=== PATIENT | male | born 1995 | race Caucasian/White ===

== ENCOUNTER 2017-10-08 19:00 | Emergency (ER) | payer OTHER ==
--- NOTE | 2017-10-08 19:05 | EDM.PDOC ---
ED HPI GENERAL MEDICAL PROBLEM - General Chief Complaint: ENT Problem Stated Complaint: Right eye pain Time Seen by Provider: 10/08/17 19:00 Source of Information: Reports: Patient, Old Records ([facility] chart/EMR) History Limitations: Reports: No Limitations - History of Present Illness INITIAL COMMENTS - FREE TEXT/NARRATIVE: The patient was brought to the emergency room via transport vehicle from [facility] for evaluation of a Workmen's Compensation injury, which occurred about 18:30 hours. 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 He did briefly lift his welder shielded metal arc shield with a foreign body sensation of his right eye shortly thereafter. 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 He did wash his right eye out prior to arrival to this facility but no other treatment to this point. The patient did have a tetanus shot one year ago by his history. He complains of 2/10 foreign body sensation of the right eye. He does have a long history of significant left-sided myopia, however has been noncompliant with his glasses, followed by exams, etc. No recent history of abdominal pain, heartburn, nausea, diarrhea, melena, gross hematochezia, or any food intolerance , including fatty foods, etc.. The patient also denies any recent fever, cough, wheezing, dyspnea, etc.. Onset: Today, Sudden Onset Date: 10/08/17 Onset Time: 18:30 Duration: Constant Location: Reports: Head (Right eye). Denies: Face, Neck, Radiates to Quality: Reports: Same as Previous Episode, Other (Foreign body sensation) Severity: Mild Improves with: Reports: None Worsens with: Reports: None Context: Reports: Other (As above) Associated Symptoms: Reports: No Other Symptoms. 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 [No Known Home Meds] 12/22/14 [History] Past Medical History HEENT History: Reports: Impaired Vision, Other (See Below). Denies: Allergic Rhinitis, Hard of Hearing Other HEENT History: Moderate to severe left-sided myopia. Gastrointestinal History: Reports: Other (See Below) Other Gastrointestinal History: Splenomegaly secondary to mononucleosis on . Genitourinary History: Reports: Renal Calculus, Other (See Below) Other Genitourinary History: Right-sided urolithiasis on 11/09/11 with spontaneous passage. Musculoskeletal History: Reports: Fracture, Other (See Below) Other Musculoskeletal History: Fracture of the distal phalanx of digit #4 of the left hand on 12/22/14 - Infectious Disease History Infectious Disease History: Reports: Chicken Pox, Mononucleosis (05/14/10.). Denies: C-Difficile, Measles, Meningitis, MRSA, Mumps, Pertussis (Whooping Cough ), Rheumatic Fever, RSV, Rubella, Scarlet Fever, Shingles, VRE - Past Imaging History Past Imaging History: Reports: CAT Scan (CT of the abdomen on 11/09/11.), Ultrasound (Abdominal ultrasound on 05/28/10. Ultrasound of the spleen and soft tissue of the neck region on 05/14/10.) Social & Family History - Tobacco Use Smoking Status *Q: Current Every Day Smoker Tobacco Use Within Last Twelve Months: Other (See Below) (E cigarettes as below) Years of Tobacco use: 6 Packs/Tins Daily: 1 Used Tobacco, but Quit: No Month/Year Tobacco Last Used: SHEENT smoked cigarettes between ages 20 and 16 and has been using E cigare Tobacco Use Comment: Smoked cigarettes between ages 16 and 20 with E cigarette use since that time Smoking Cessation Information Provided To Patient: Yes Second Hand Smoke Exposure: No Second Hand Smoke Education Provided: No - Living Situation & Occupation Living situation: Reports: Single (No children), with Significant Other Occupation: Employed ([employer]) ED ROS GENERAL - Review of Systems Review Of Systems: ROS reveals no pertinent complaints other than HPI. ED EXAM GENERAL W FULL EYE - Physical Exam Exam: See Below Exam Limited By: No Limitations General Appearance: Alert, WD/WN, No Apparent Distress Eye Exam: Left Eye: Vision Changes (Chronic as below), Bilateral Eye: EOMI, Normal Fundi, Normal Inspection, PERRL Visual Acuity (R) 20/: 15 Visual Acuity (L) 20/: 70 With Correction: No Eyelids: Bilateral: Normal Appearance Conjunctiva & Sclera: Bilateral: Normal Appearance Cornea Exam: Right: Examined with Flourescein, Bilateral: Normal Appearance Extraocular Movements: Bilateral: Intact Pupils: Normal Accommodation Pupillary Size: Bilateral: 6 mm Pupillary Reaction: Bilateral: Brisk Anterior Chamber: Bilateral: Normal Appearance Posterior Chamber: Bilateral: Normal Funduscopic Ears: Normal External Exam, Normal Canal, Hearing Grossly Normal, Normal TMs Nose: Normal Inspection, Normal Mucosa, No Blood Throat/Mouth: Normal Inspection, Normal Lips, Normal Teeth, Normal Gums, Normal Oropharynx, Normal Voice, No Airway Compromise. No: Dysphagia, Perioral Cyanosis Head: Atraumatic, Normocephalic. No: Facial Swelling, Facial Tenderness, Sinus Tenderness Neck: Normal Inspection, Supple, Non-Tender, Full Range of Motion. No: Lymphadenopathy (L), Lymphadenopathy (R), Thyromegaly Respiratory/Chest: No Respiratory Distress, Lungs Clear, Normal Breath Sounds, No Accessory Muscle Use, Chest Non-Tender. No: Pleural Rub, Retractions Cardiovascular: Normal Peripheral Pulses, Regular Rate, Rhythm, No Edema, No Gallop, No JVD, No Murmur, No Rub. No: Gallop/S3, Gallop/S4 GI/Abdominal: Normal Bowel Sounds, Soft, Non-Tender, No Organomegaly, No Distention, No Abnormal Bruit, No Mass. No: Guarding (Male) Exam: Deferred Rectal (Males) Exam: Deferred Back Exam: Normal Inspection, Full Range of Motion. No: CVA Tenderness (L), CVA Tenderness (R), Muscle Spasm Extremities: Normal Inspection, Normal Range of Motion, Non-Tender, Normal Capillary Refill, No Pedal Edema Neurological: Alert, Oriented, CN II-XII Intact, Normal Cognition, Normal Gait, No Motor/Sensory Deficits Psychiatric: Normal Affect, Normal Mood Skin Exam: Warm, Dry, Intact, Normal Color, No Rash. No: Diaphoretic, Wound/ Incision Lymphatic: No Adenopathy ED EYE w/ Add Procedure - Eye Procedure Alcaine Drops Administered: Yes (Tetracaine) Eye FB Removal: Other (No foreign body noted) Eye Irrigated w/ Saline (ccs): 30 Course - Vital Signs Last Recorded V/S: Last Vital Signs Temp 36.8 C 10/08/17 19:07 Pulse 81 10/08/17 19:07 Resp 18 10/08/17 19:07 BP 124/78 10/08/17 19:07 Pulse Ox 100 10/08/17 19:07 Vital Signs - 24 hr 10/08/17 19:07 Temperature [ 36.8 C Temporal] Pulse, 81 Peripheral [ Right Pulse Oximetry] Respiratory 18 Rate Blood Pressure 124/78 [Right Upper Arm] O2 Sat by Pulse 100 Oximetry - Orders/Labs/Meds Orders: Active Orders 24 hr Category Date Time Status Obtain Past Medical Record [OM.PC] Routine Oth 10/08/17 19:05 Active Labs: None Meds: Medications Discontinued Medications Generic Name Dose Route Start Last Admin Trade Name Homarq PRN Reason Stop Dose Admin Balanced Salt Solution 30 ml 10/08/17 19:07 10/08/17 19:19 Eye Stream Eye Rinse EYERT 10/08/17 19:08 Not Given ONETIME ONE Tetracaine HCl 1 ml 10/08/17 19:07 10/08/17 19:19 Tetracaine 0.5% Steri-Unit [place] EYERT 10/08/17 19:08 Not Given ASDIRECTED ONE - Radiology Interpretation Free Text/Narrative:: None Departure - Departure Time of Disposition: 19:50 Disposition: Home, Self-Care 01 Condition: Good Clinical Impression: Tobacco abuse counseling Foreign body of right eye Qualifiers: Encounter type: initial encounter Qualified Code(s): T15.91XA - Foreign body on external eye, part unspecified, right eye, initial encounter Myopia Qualifiers: Laterality: left Qualified Code(s): H52.12 - Myopia, left eye - Discharge Information *PRESCRIPTION DRUG MONITORING PROGRAM REVIEWED*: Not Applicable *COPY OF PRESCRIPTION DRUG MONITORING REPORT IN PATIENT DIANA: Not Applicable Instructions: What You Need to Know About Electronic Cigarettes, Eye Foreign Body, [id number] Forms: ED Department Discharge Additional Instructions: 1. Follow up with your regular provider in 4-5 days as needed, if symptoms persist. Bring these discharge instructions with you to that visit.. 2. Stop all tobacco/ E- cigarette use ANN as directed/per provided information and consider contacting Quit LIne, etc.. 3. Strict compliance with use of your glasses with follow-up with your eye doctor ANN secondary to significant vision problems in the left eye 4. Work excuse- See Form 5. Tylenol 650 mg by mouth every 4 hours and/or OTC ibuprofen 2-3 tabs by mouth every 6 hours with food as directed./needed. 6. Artificial tears 2 drops in the right eye every 2 hours as needed/discussed until symptoms resolve 7. Immediately after this visit verify that your cellular telephone's voicemail has been activated and is empty. Also verify that your home telephone 's answering machine is operating properly and has space to receive messages. Note that it is sometimes necessary for us to be able to contact you at a later date to discuss your medical care. - Problem List & Annotations (1) Foreign body of right eye SNOMED Code(s): 19433423 Code(s): T15.91XA - FOREIGN BODY ON EXTERNAL EYE, PART UNSP, RIGHT EYE, INIT Status: Acute Priority: High Onset Date: 10/08/17 Annotation/Comment:: History of possible foreign body of the right eye, although the patient is uncertain at this time. He did not see any foreign body after he rinsed his eye out at work as above. His tetanus booster is up-to-date as above. Completely normal Fluroscein test, eye exam, etc. as above with exception of significant chronic baseline left-sided myopia with the patient noncompliant with his follow -up eye exams and use of glasses. He should follow-up with his eye doctor ANN secondary to his poor vision of the left eye. 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 Workmen's Compensation and [place] work excuse forms were completed. He does feel he can perform his normal work duties, including this evening. Symptomatic relief as per discharge instructions. Qualifiers: Encounter type: initial encounter Qualified Code(s): T15.91XA - Foreign body on external eye, part unspecified, right eye, initial encounter (2) Myopia SNOMED Code(s): 54007947 Code(s): H52.10 - MYOPIA, UNSPECIFIED EYE Status: Chronic Priority: High Annotation/Comment:: As above Qualifiers: Laterality: left Qualified Code(s): H52.12 - Myopia, left eye (3) Tobacco abuse counseling SNOMED Code(s): 265084753, 812465049, 488214754 Code(s): Z71.6 - TOBACCO ABUSE COUNSELING Status: Chronic Priority: Medium Annotation/Comment:: Patient was congratulated about stopping cigarette use, however was strongly encouraged to discontinue the E-cigarette use with information provided. - Problem List Review Problem List Initiated/Reviewed/Updated: Yes - My Orders Last 24 Hours: My Active Orders 10/08/17 19:05 Obtain Past Medical Record [OM.PC] Routine - Assessment/Plan Last 24 Hours: My Active Orders 10/08/17 19:05 Obtain Past Medical Record [OM.PC] Routine Assessment:: As above Plan: As above. Extensive precautions were given to the patient, who is in agreement with the treatment plan. See Patient Instructions for further treatment and plan.
[2017-10-08] MEDS ORDERED: Tetracaine HCl/PF 0.5% 4 ML Bottle EYERT ONE (19:07)
[2017-10-08] MEDS ORDERED: Balanced Salt Solution Ophth Irrig 30 ML Bottle EYERT ONE (19:07)
[2017-10-08 19:08] VITALS: BP 124/78
== END 2017-10-08 19:30 | disposition home or self-care (01) ==
LOC: LL.ED 19:00
DX: T15.91XA Foreign body on external eye, part unspecified, right eye, initial encounter (principal); H52.12 Myopia, left eye; Z71.6 Tobacco abuse counseling
CPT/HCPCS: 99284; A9270-GY

== ENCOUNTER 2018-09-10 18:24 | Emergency (ER) | payer BC ==
[2018-09-10] MEDS ORDERED: Sodium Chloride 0.9% 10 ML Syringe FLUSH PRN (18:38)
[2018-09-10] MEDS ORDERED: Lactated Ringers 1,000 ML IV ONE (18:38)
[2018-09-10] MEDS ORDERED: Pantoprazole 40 MG Vial IVPUSH ONE (18:38)
[2018-09-10] MEDS ORDERED: Famotidine 20 MG/2 ML SDV IVPUSH ONE (18:38)
--- NOTE | 2018-09-10 18:38 | EDM.PDOC ---
ED HPI GENERAL MEDICAL PROBLEM - General Chief Complaint: Abdominal Pain Stated Complaint: Abdominal pain LLQ Time Seen by Provider: 09/10/18 18:30 Source of Information: Reports: Patient, Old Records ([facility] chart/EMR) History Limitations: Reports: No Limitations - History of Present Illness INITIAL COMMENTS - FREE TEXT/NARRATIVE: The patient drove himself to the emergency room via private automobile for evaluation of nonspecific 2/10 left lower quadrant abdominal pain and aching sensation with symptoms starting at about 10 AM yesterday morning when he woke up. He was able to go to work yesterday, however had to leave work this afternoon secondary to worsening of his symptoms. His symptoms are intermittent in nature with no similar symptoms in the past. He has not taken any medications for his symptoms to this point. He denies any known exposure to infection, food poisoning, etc.. He denies any current nausea with one episode of emesis at about 17:30 hours this afternoon. No recent history of other abdominal pain, heartburn, diarrhea, melena, gross hematochezia, hematemesis, or any food intolerance, including fatty foods, etc. with a normal bowel movement earlier this morning. He denies any gross hematuria, colic, or other UTI symptoms. The patient denies any chest pain/pressure, heart flutter, dizziness, orthostasis, orthopnea, diaphoresis, paresthesias, recent decreased exercise tolerance, or any other anginal-type symptoms. The patient also denies any recent fever, cough, wheezing, dyspnea, etc.. Onset: Today, Gradual Onset Date: 09/09/18 Onset Time: 10:00 Duration: Getting Worse, Intermittent Location: Reports: Abdomen. Denies: Head, Face, Neck, Chest, Back, Pelvis, Radiates to Quality: Reports: Ache Severity: Mild Improves with: Reports: None Worsens with: Reports: None Context: Reports: Other (As above). Denies: Sick Contact, Trauma Associated Symptoms: Reports: Nausea/Vomiting. 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 Denies: Allergic Rhinitis, Cataract, Glaucoma, Hard of Hearing, Macular Degeneration, Retinal Detachment Other HEENT History: Moderate to severe left-sided myopia with patient wearing glasses. Cardiovascular History: Reports: None, Other (See Below). Denies: Afib, Aneurysm, Arrhythmia, Blood Clots/VTE/DVT, CAD, Cardiomyopathy, Heart Failure, Heart Murmur, High Cholesterol, Hypertension, VA, PVD, Syncope Other Cardiovascular History: He does not know his cholesterol status. Respiratory History: Reports: None. Denies: Asthma, Bronchitis, Recurrent, COPD , Intubation, Difficult, Intubation, Previous, PE, Pneumonia, Recurrent, Pneumothorax, Sleep Apnea, TB Gastrointestinal History: Reports: Gastritis, GI Bleed, Helicobacter Pylori, Other (See Below). Denies: Celiac Disease, Cholelithiasis, Chronic Constipation , Chronic Diarrhea, Colon Polyp, Fecal Incontinence, Hepatitis, Inflammatory Bowel Disease, Irritable Bowel Syndrome, Jaundice, Pancreatitis, PUD Other Gastrointestinal History: Probable gastritis with Hemoccult-positive stools with previously treated H. pylori infection in about 2015 with no evidence of significant GI bleed. Splenomegaly secondary to mononucleosis on 05/14. Genitourinary History: Reports: Renal Calculus, Other (See Below). Denies: Acute Renal Failure, BPH, Chronic Renal Insuffiency, Prostate Disorder, Retention, Urinary, STD, Urinary Incontinence, UTI, Recurrent Other Genitourinary History: Right-sided urolithiasis on 11/09/11 with spontaneous passage. Musculoskeletal History: Reports: Fracture, Other (See Below). Denies: Arthritis, Back Pain, Chronic, Gout, Neck Pain, Chronic, Osteoarthritis, RA, SLE Other Musculoskeletal History: Fracture of the distal phalanx of digit #4 of the left hand on 12/22/14 Neurological History: Reports: None. Denies: Cerebral Aneurysms, Concussion, CVA, Headaches, Chronic, Head Trauma, Migraines, MS, Parkinson's, Seizure, TIA, Vertigo Psychiatric History: Reports: Anxiety, Depression. Denies: Abuse, Victim of, ADD, ADHD, Addiction, Psych Hospitalization(s), Psychosis, PTSD, Suicide Attempt , Suicidal Ideation Endocrine/Metabolic History: Reports: None. Denies: Diabetes, Type I, Diabetes , Type II, Diabetes Mellitus, Type 3c, Hypothyroidism, IDDM, Obesity/BMI 30+ Hematologic History: Reports: None. Denies: Anemia, Blood Transfusion(s), Iron Deficiency Immunologic History: Reports: None. Denies: AIDS, HIV, SLE Oncologic (Cancer) History: Reports: None. Denies: Basal Cell Carcinoma, Hodgkin's Lymphoma, Leukemia, Lymphoma, Malignant Melanoma, Non-Hodgkin's Lymphoma, Squamous Cell Carcinoma Dermatologic History: Reports: None. Denies: Eczema, Melanoma - Infectious Disease History Infectious Disease History: Reports: Chicken Pox, Helicobacter Pylori ( Previously treated as above), Mononucleosis (05/14/10.). Denies: C-Difficile, Measles, Meningitis, MRSA, Mumps, Pertussis (Whooping Cough), Rheumatic Fever, RSV, Rubella, Scarlet Fever, Shingles, TB, VRE - Past Surgical History Head Surgeries/Procedures: Reports: None HEENT Surgical History: Reports: Myringotomy w Tube(s), Oral Surgery, Other ( See Below). Denies: Adenoidectomy, Eye Surgery, Laser Surgery, LASIK, Naso- Sinus Surgery, Tonsillectomy Other HEENT Surgeries/Procedures: [place] teeth extraction 2017. Bilateral PE tubes in patient biller. Cardiovascular Surgical History: Reports: None. Denies: Varicose, Vascular Surgery Respiratory Surgical History: Reports: None. Denies: Thoracentesis GI Surgical History: Reports: None. Denies: Appendectomy, Cholecystectomy, Colonoscopy, EGD, Hernia, Abdominal, Hernia, Inguinal, Hernia Repair/Other, Polypectomy Male Surgical History: Reports: Circumcision, Other (See Below). Denies: Vasectomy Other Male Surgeries/Procedures: Circumcision as an infant. Endocrine Surgical History: Reports: None. Denies: Thyroid Biopsy Neurological Surgical History: Reports: None. Denies: C-Spine, Discectomy, Laminectomy, Lumbar Spine, Sacral Spine, Spinal Fusion, Thoracic Spine, Vertebroplasty Musculoskeletal Surgical History: Reports: None. Denies: Arthroscopic Procedure , Carpal Tunnel, Ganglion Cyst, Joint Replacement, ORIF, Shoulder Replacement, Shoulder Surgery Oncologic Surgical History: Reports: None Dermatological Surgical History: Reports: None - Past Imaging History Past Imaging History: Reports: CAT Scan (CT of the abdomen on 11/09/11.), Ultrasound (Abdominal ultrasound on 05/28/10. Ultrasound of the spleen and soft tissue of the neck region on 05/14/10.) Social & Family History - Tobacco Use Smoking Status *Q: Current Every Day Smoker Tobacco Use Within Last Twelve Months: Cigarettes Years of Tobacco use: 7 Packs/Tins Daily: 1 Packs/Tins Daily Comment: Smoked about 1 pack of cigarettes per day between ages 16 and 20 with use of E cigarettes since that time. Used Tobacco, but Quit: No Smoking Cessation Information Provided To Patient: Yes Second Hand Smoke Exposure: Yes Source of Second Hand Smoke Exposure: Father's significant other also abuses tobacco Second Hand Smoke Education Provided: Yes - Caffeine Use Caffeine Use: Reports: None. Denies: Coffee, Energy Drinks, Soda, Tea - Alcohol Use Alcohol Use History: Yes Days Per Week of Alcohol Use: 4 Number of Drinks Per Day: 6 Number of Drinks Per Day Comment: Usually beer. No previous DWIs, problems with alcohol abuse, etc. Total Drinks Per Week: 24 Alcohol Use in Last Twelve Months: Yes - Recreational Drug Use Recreational Drug Use: Yes Drug Use in Last 12 Months: Yes Recreational Drug Type: Reports: Cocaine (Experimented with cocaine in August 2018.), Marijuana/Hashish (Daily use since age 22.). Denies: Amphetamines ( Speed), Heroin, Inhalants (Glues, Solvents, Aerosols), LSD (Acid), Methamphetamine, Morphine, Oxycodone Recreational Drug Route: Reports: Inhaled - Living Situation & Occupation Living situation: Reports: Single (No children), with Family (Father and his father significant other.) Occupation: Employed ([employer]) ED ROS GENERAL - Review of Systems Review Of Systems: ROS reveals no pertinent complaints other than HPI. ED EXAM, GI/ABD - Physical Exam Exam: See Below Exam Limited By: No Limitations General Appearance: Alert, WD/WN, No Apparent Distress, Anxious (Mild) Eyes: Bilateral: Normal Appearance (No nystagmus), EOMI (PERRLA) Ears: Normal External Exam, Normal Canal, Hearing Grossly Normal, Normal TMs Nose: Normal Inspection, Normal Mucosa, No Blood Throat/Mouth: Normal Inspection, Normal Lips, Normal Teeth, Normal Gums, Normal Oropharynx, Normal Voice, No Airway Compromise. No: Dysphagia, Perioral Cyanosis Head: Atraumatic, Normocephalic. No: Facial Swelling, Facial Tenderness, Sinus Tenderness Neck: Normal Inspection, Supple, Non-Tender, Full Range of Motion. No: Lymphadenopathy (L), Lymphadenopathy (R), Thyromegaly Respiratory/Chest: No Respiratory Distress, Lungs Clear, Normal Breath Sounds, No Accessory Muscle Use, Chest Non-Tender. No: Pleural Rub, Retractions Cardiovascular: Normal Peripheral Pulses, Regular Rate, Rhythm, No Edema, No Gallop, No JVD, No Murmur, No Rub. No: Gallop/S3, Gallop/S4 GI/Abdominal Exam: Normal Bowel Sounds, Soft, Non-Tender, No Organomegaly, No Distention, No Abnormal Bruit, No Mass. No: Guarding (Male) Exam: Deferred Rectal (Males) Exam: Deferred Back Exam: Normal Inspection, Full Range of Motion. No: CVA Tenderness (L), CVA Tenderness (R), Muscle Spasm Extremities: Normal Inspection, Normal Range of Motion, Non-Tender, No Pedal Edema, Normal Capillary Refill. No: Carlos Alberto's Sign Neurological: Alert, Oriented, CN II-XII Intact, Normal Cognition, Normal Gait, Normal Reflexes (Negative Babinski's), No Motor/Sensory Deficits Psychiatric: Anxious (Mild). No: Depressed Mood Skin Exam: Warm, Dry, Intact, Normal Color, No Rash. No: Diaphoretic, Wound/ Incision Lymphatic: No Adenopathy Course - Vital Signs Last Recorded V/S: Last Vital Signs Temp 36.8 C 09/10/18 18:30 Pulse 97 09/10/18 18:30 Resp 20 09/10/18 18:30 BP 128/76 09/10/18 18:30 Pulse Ox 98 09/10/18 18:30 Vital Signs - 24 hr 09/10/18 18:30 Temperature [ 36.8 C Temporal] Pulse, 97 Peripheral [ Right Pulse Oximetry] Respiratory 20 Rate Blood Pressure 128/76 [Left Upper Arm ] O2 Sat by Pulse 98 Oximetry - Orders/Labs/Meds Orders: Active Orders 24 hr Category Date Time Status Peripheral IV Care [RC] . DIRECTED Care 09/10/18 18:38 Active Abdomen Series w Chest 1V [CR] Stat Exams 09/10/18 18:38 Taken CULTURE URINE [RM] Stat Lab 09/10/18 19:18 Received Obtain Past Medical Record [OM.PC] Urgent Oth 09/10/18 18:38 Active Peripheral IV Insertion Adult [OM.PC] Stat Oth 09/10/18 18:38 Ordered Resuscitation Status Stat Resus Stat 09/10/18 18:38 Ordered Labs: Laboratory Tests 09/10/18 09/10/18 09/10/18 Range/Units 18:48 18:48 18:48 WBC 8.6 (4.0-10.2) K/uL RBC 5.13 (4.33-5.41) M/uL Hgb 16.2 D (13.1-16.8) g/dL Hct 46.6 (39.0-49.0) % MCV 90.8 (84.0-98.0) fL MCH 31.6 (28.2-33.3) pg MCHC 34.8 (31.7-36.0) g/dL RDW 13.9 (11.2-14.1) % Plt Count 252 (150-350) K/uL Neut % (Auto) 77.1 (45.0-80.0) % Lymph % (Auto) 16.2 (10.0-50.0) % [place] % (Auto) 5.9 (2.0-14.0) % Eos % (Auto) 0.5 (0.0-5.0) % Baso % (Auto) 0.3 (0.0-2.0) % Neut # (Auto) 6.64 (1.40-7.00) K/uL Lymph # (Auto) 1.40 (0.50-3.50) K/uL [place] # (Auto) 0.51 (0.00-1.00) K/uL Eos # (Auto) 0.04 (0.00-0.50) K/uL Baso # (Auto) 0.03 (0.00-0.20) K/uL PT 11.5 (9.5-12.0) SEC INR 1.1 APTT 30.0 (21.0-31.3) SEC Sodium (136-145) mmol/L Potassium (3.5-5.1) mmol/L Chloride (98-107) mmol/L Carbon Dioxide (21.0-32.0) mmol/L BUN (7-18) mg/dL Creatinine (0.51-1.17) mg/dL Est Cr Clr Drug Dosing Estimated GFR (MDRD) mL/min Glucose (74-106) mg/dL Lactic Acid (0.4-2.0) mmol/L Uric Acid (2.6-7.2) mg/dL Calcium (8.5-10.1) mg/dL Magnesium (1.8-2.4) mg/dL Total Bilirubin (0.2-1.0) mg/dL AST (15-37) U/L ALT (12-78) U/L Alkaline Phosphatase (46-116) IU/L Total Protein (6.4-8.2) g/dL Albumin (3.4-5.0) g/dL Amylase 73 (25-115) U/L Lipase (73-393) U/L Specimen Type Urine Color Urine Appearance Urine pH (5.0-9.0) Ur Specific [place] (1.005-1.030) Urine Protein (NEGATIVE) mg/dL Urine Glucose (UA) (NEGATIVE) mg/dL Urine Ketones (NEGATIVE) mg/dL Urine Occult Blood (NEGATIVE) Urine Nitrite (NEGATIVE) Urine Bilirubin (NEGATIVE) Urine Urobilinogen (0.2-1.0) E.U./dL Ur Leukocyte Esterase (NEGATIVE) Urine RBC /HPF Urine WBC /HPF Ur Epithelial Cells /LPF Urine Bacteria (NONE TO FEW) /HPF Urine Mucus (NEGATIVE) /LPF 09/10/18 09/10/18 09/10/18 Range/Units 18:48 18:48 19:18 WBC (4.0-10.2) K/uL RBC (4.33-5.41) M/uL Hgb (13.1-16.8) g/dL Hct (39.0-49.0) % MCV (84.0-98.0) fL MCH (28.2-33.3) pg MCHC (31.7-36.0) g/dL RDW (11.2-14.1) % Plt Count (150-350) K/uL Neut % (Auto) (45.0-80.0) % Lymph % (Auto) (10.0-50.0) % [place] % (Auto) (2.0-14.0) % Eos % (Auto) (0.0-5.0) % Baso % (Auto) (0.0-2.0) % Neut # (Auto) (1.40-7.00) K/uL Lymph # (Auto) (0.50-3.50) K/uL [place] # (Auto) (0.00-1.00) K/uL Eos # (Auto) (0.00-0.50) K/uL Baso # (Auto) (0.00-0.20) K/uL PT (9.5-12.0) SEC INR APTT (21.0-31.3) SEC Sodium 137 (136-145) mmol/L Potassium 4.1 (3.5-5.1) mmol/L Chloride 101 (98-107) mmol/L Carbon Dioxide 26.5 (21.0-32.0) mmol/L BUN 10 (7-18) mg/dL Creatinine 0.83 (0.51-1.17) mg/dL Est Cr Clr Drug Dosing TNP Estimated GFR (MDRD) > 60 mL/min Glucose 94 (74-106) mg/dL Lactic Acid 0.8 (0.4-2.0) mmol/L Uric Acid 6.3 (2.6-7.2) mg/dL Calcium 9.4 (8.5-10.1) mg/dL Magnesium 1.8 (1.8-2.4) mg/dL Total Bilirubin 0.7 (0.2-1.0) mg/dL AST 18 (15-37) U/L ALT 26 (12-78) U/L Alkaline Phosphatase 85 (46-116) IU/L Total Protein 8.4 H (6.4-8.2) g/dL Albumin 4.3 (3.4-5.0) g/dL Amylase (25-115) U/L Lipase 76 (73-393) U/L Specimen Type Urinvoid Urine Color Dark yellow Urine Appearance Clear Urine pH 5.5 (5.0-9.0) Ur Specific [place] 1.020 (1.005-1.030) Urine Protein Negative (NEGATIVE) mg/dL Urine Glucose (UA) Negative (NEGATIVE) mg/dL Urine Ketones Trace H (NEGATIVE) mg/dL Urine Occult Blood Negative (NEGATIVE) Urine Nitrite Negative (NEGATIVE) Urine Bilirubin Negative (NEGATIVE) Urine Urobilinogen 0.2 (0.2-1.0) E.U./dL Ur Leukocyte Esterase Negative (NEGATIVE) Urine RBC 0-5 /HPF Urine WBC 0-5 /HPF Ur Epithelial Cells Rare /LPF Urine Bacteria Rare (NONE TO FEW) /HPF Urine Mucus Moderate H (NEGATIVE) /LPF Urine specimen set up for C&S Meds: Medications Discontinued Medications Generic Name Dose Route Start Last Admin Trade Name Freq PRN Reason Stop Dose Admin Famotidine 40 mg 09/10/18 18:38 09/10/18 19:07 Pepcid IVPUSH 09/10/18 18:39 40 mg ONETIME ONE Administration Lactated Ringer's 1,000 mls @ 999 mls/hr 09/10/18 18:38 09/10/18 19:07 Ringers, Lactated IV 09/10/18 19:38 999 mls/hr .BOLUS ONE Administration Pantoprazole Sodium 40 mg 09/10/18 18:38 09/10/18 19:06 Protonix Iv IVPUSH 09/10/18 18:39 40 mg ONETIME ONE Administration Sodium Chloride 10 ml 09/10/18 18:38 09/10/18 19:18 Saline Flush FLUSH 10 ml ASDIRECTED PRN Administration Keep Vein Open - Radiology Interpretation Free Text/Narrative:: Acute abdominal x-rays shows evidence of a nonspecific right upper quadrant calcification of unknown etiology with no free air, significant gaseous distention, fluid levels, ileus, obstruction, pulmonary infiltrates, cardiomegaly, pneumothorax, etc. Departure - Departure Time of Disposition: 20:25 Disposition: Home, Self-Care 01 Condition: Good Clinical Impression: Tobacco abuse counseling, Illicit drug use, continuous, Mixed anxiety depressive disorder Abdominal pain Qualifiers: Abdominal location: left lower quadrant Qualified Code(s): R10.32 - Left lower quadrant pain - Discharge Information *PRESCRIPTION DRUG MONITORING PROGRAM REVIEWED*: Not Applicable *COPY OF PRESCRIPTION DRUG MONITORING REPORT IN PATIENT DIANA: Not Applicable Instructions: Health Risks of Smoking, Viral Gastroenteritis, Adult, Easy-to- Read, What You Need to Know About Electronic Cigarettes, Abdominal Pain, Adult, [id number] Referrals: PCP,Not In Area [Primary Care Provider] - Forms: ED Department Discharge Additional Instructions: 1. Follow up with your regular provider in 10-14 days as needed, if symptoms persist. Bring these discharge instructions with you to that visit.. 2. Tylenol 650 mg by mouth every 4 hours and/or OTC ibuprofen 2-3 tabs by mouth every 6 hours with food as directed./needed. You may stagger these medications for 48-72 hours only, which essentially means that you are receiving a pain medication about every 2 hours. 3. You may take [id number] antacids or other systemic medications such as Pepcid or Prilosec as needed/as per label instructions 4. Discontinue all tobacco and illicit drug use as discussed. 5. [place] diet including encouragement of oral fluids such as sports drinks, etc. for 24-48 hours as directed. Advance to regular diet as tolerated thereafter. 6. Work excuse- See Form 7. Immediately after this visit verify that your cellular telephone's voicemail has been activated and is empty. Also verify that your home telephone 's answering machine is operating properly and has space to receive messages. Note that it is sometimes necessary for us to be able to contact you at a later date to discuss your medical care. 8. Please remember that we are ALWAYS here for you and want to answer any questions you may have. Feel free to call the hospital any time and we call you back ANN. - Problem List & Annotations (1) Abdominal pain SNOMED Code(s): 61824192 Code(s): R10.9 - UNSPECIFIED ABDOMINAL PAIN Status: Acute Priority: High Onset Date: 09/10/18 Annotation/Comment:: Nonspecific abdominal pain with no significant findings by clinical exam, etc. as above. Symptomatic relief as per discharge instructions. Possible beginning viral GE. Urine specimen set up for C&S. UA negative with exception of trace ketones with IV fluids given in the ER. [place] work excuse completed. Further workup depending on his clinical course. Note distant previously treated H. pylori infection. Qualifiers: Abdominal location: left lower quadrant Qualified Code(s): R10.32 - Left lower quadrant pain (2) Illicit drug use, continuous SNOMED Code(s): 079377013 Code(s): F19.90 - OTHER PSYCHOACTIVE SUBSTANCE USE, UNSPECIFIED, UNCOMPLICATED Status: Chronic Priority: High Annotation/Comment:: The patient was counseled extensively concerning his current marijuana use and its effects on his emotional status, pulmonary status, general health, etc.. Note recent experimentation with cocaine with the patient intending to never use other substance other than marijuana from this point. (3) Mixed anxiety depressive disorder SNOMED Code(s): 715567607 Code(s): F41.8 - OTHER SPECIFIED ANXIETY DISORDERS Status: Chronic Priority: Medium Annotation/Comment:: Stable by patient history. Note marijuana use as above. (4) Tobacco abuse counseling SNOMED Code(s): 830692623, 729141468, 167288865 Code(s): Z71.6 - TOBACCO ABUSE COUNSELING Status: Chronic Priority: Medium Annotation/Comment:: Patient was congratulated about stopping cigarette use, however was strongly encouraged once again to discontinue the E- cigarette use with information provided. - Problem List Review Problem List Initiated/Reviewed/Updated: Yes - My Orders Last 24 Hours: My Active Orders 09/10/18 18:38 Peripheral IV Care [RC] . DIRECTED Abdomen Series w Chest 1V [CR] Stat Obtain Past Medical Record [OM.PC] Urgent Peripheral IV Insertion Adult [OM.PC] Stat Resuscitation Status Stat 09/10/18 19:18 CULTURE URINE [RM] Stat - Assessment/Plan Last 24 Hours: My Active Orders 09/10/18 18:38 Peripheral IV Care [RC] . DIRECTED Abdomen Series w Chest 1V [CR] Stat Obtain Past Medical Record [OM.PC] Urgent Peripheral IV Insertion Adult [OM.PC] Stat Resuscitation Status Stat 09/10/18 19:18 CULTURE URINE [RM] Stat Assessment:: As above Plan: As above. Extensive precautions were given to the patient, who is in agreement with the treatment plan. See Patient Instructions for further treatment and plan.
[2018-09-10 19:01] VITALS: BP 128/76; PULSE 97
[2018-09-10 19:13] LABS: CHLORIDE,CL 101 mmol/L (98-107); SODIUM,NA 137 mmol/L (136-145)
== END 2018-09-10 20:25 | disposition home or self-care (01) ==
LOC: LL.ED 18:24
DX: R10.32 Left lower quadrant pain (principal); F41.8 Other specified anxiety disorders; Z71.6 Tobacco abuse counseling; F19.90 Other psychoactive substance use, unspecified, uncomplicated; F17.210 Nicotine dependence, cigarettes, uncomplicated; Z96.22 Myringotomy tube(s) status
CPT/HCPCS: 36415; 74022; 80053; 81001; 82150; 83605; 83690; 83735; 84550; 85025; 85610; 85730; 87086; 96361; 96374; 96375; 99284; C9113; J3490; J7120

== ENCOUNTER 2022-05-15 19:30 | Emergency (ER) | payer BC ==
[2022-05-15] MEDS ORDERED: Sodium Chloride 0.9% 1,000 ML IV ONE (20:33)
[2022-05-15] MEDS ORDERED: Iopamidol 612 MG/ML 100 ML Bottle ONE (20:43)
[2022-05-15 21:01] LABS: ANION GAP 12.3 meq/L (7-15)
[2022-05-15 21:48] LABS: CORONAVIRUS COVID-19 NAA NEGATIVE (NEGATIVE); RESPIRATORY SYNCYTIAL VIR NAA NEGATIVE (NEGATIVE)
[2022-05-15] MEDS ORDERED: methylPREDNISolone Sodium Succinate 125 MG/2 ML SDV IVPUSH ONE (23:03)
[2022-05-15] MEDS ORDERED: Ampicillin/Sulbactam Na 3 GM in Sodium Chloride 0.9% 100 ML IV ONE (23:07)
[2022-05-15] MEDS ORDERED: Take Home: Amoxicillin/Clavulanate K 875-125 MG Tab, 6 Tab Pack PO ONE (23:21)
[2022-05-15] MEDS: Sodium Chloride 0.9% 10 ML Syringe FLUSH PRN (23:21)
[2022-05-15] MEDS ORDERED: traMADol 50 MG Tab PO ONE (23:33)
[2022-05-15] MEDS ORDERED: Ketorolac 30 MG/ML SDV IVPUSH ONE (23:33)
[2022-05-15] MEDS ORDERED: Take Home: traMADol 50 MG, 4 Tab Pack PO ONE (23:33)
[2022-05-16] MEDS: Sodium Chloride 0.9% 10 ML Syringe FLUSH PRN (00:28)
[2022-05-16 04:23] VITALS: BP 132/90
[2022-05-16 04:34] VITALS: PULSE 86
== END 2022-05-16 00:39 | disposition home or self-care (01) ==
LOC: LL.ED 19:30
DX: J36 Peritonsillar abscess (principal); E86.0 Dehydration; F17.210 Nicotine dependence, cigarettes, uncomplicated; Z20.822 Contact with and (suspected) exposure to COVID-19
CPT/HCPCS: 0241U; 70491; 80053; 85025; 87081; 87430; 96361; 96374; 96375; 99284-25; A9270-GY; J0295; J1885; J2930; J3490; J7030; Q9967

== ENCOUNTER 2024-02-06 15:31 | Emergency (ER) | payer BC ==
[2024-02-06 16:58] VITALS: BP 121/78; PULSE 91
== END 2024-02-06 17:07 | disposition home or self-care (01) ==
LOC: LL.ED 15:31
DX: J02.8 Acute pharyngitis due to other specified organisms (principal); F17.210 Nicotine dependence, cigarettes, uncomplicated; Z79.899 Other long term (current) drug therapy
CPT/HCPCS: 99282; 99283